=== PATIENT | male | born 1980 | race Caucasian/White ===

== ENCOUNTER 2017-11-03 08:54 | Day surgery (SDC) | payer OTHER ==
[2017-11-03 09:54] VITALS: RESP 16; TEMP 98.2
[2017-11-03] MEDS ORDERED: LIDOCAINE 1% 20 ML VIAL (10MG/ML) FOR IV START INTRADERMA ONE (10:01)
[2017-11-03] MEDS ORDERED: LACTATED RINGERS 1,000 ML IV ONE (10:01)
[2017-11-03] MEDS ORDERED: PROPOFOL 10 MG/ML 20 ML VIAL IV ONE (10:11)
[2017-11-03] MEDS ORDERED: LACTATED RINGERS 1,000 ML IV SCH (10:42)
--- NOTE | 2017-11-03 10:45 | P.PCN ---
Date of Procedure: 11/03/17 Procedure(s) Performed: Procedure: Colonoscopy and biopsy. Preoperative diagnosis: Change in bowel habits. Postoperative diagnosis: 1. Diverticulosis with no evidence of acute diverticulitis or strictures. 2. No evidence of inflammatory bowel disease endoscopically. 3. Cecal polyp biopsied but no large polyps or cancer. Preparation: HalfLytely prep. Sedation: Was provided by anesthesia. Brief clinical history: The patient is a 37-year-old male who is referred for this evaluation because of diarrhea of around 2 years duration. No bleeding or extraintestinal manifestations of inflammatory bowel disease. No family history of colon cancer or inflammatory bowel disease. Procedure: With the patient on his left lateral decubitus position and after informed consent and adequate sedation, the perianal area was inspected and it did not show any fissures or fistulas. There were no masses felt on digital rectal examination. The Olympus CFQ 160L video colonoscope was then inserted in the rectum in the usual fashion and advanced to the cecum. I intubated the ileocecal valve and examined the terminal ileum as well. Terminal ileum and colon appeared healthy with no evidence of inflammatory bowel disease endoscopically. There were several diverticular orifices seen scattered in the sigmoid and right side with no evidence of acute diverticulitis or strictures. There was a small cecal polyp which was biopsied, but there were no large polyps or cancer. I retroflexed the endoscope in the rectum before the endoscope was withdrawn. I obtained biopsies from the terminal ileum and randomly from the colon before the endoscope was withdrawn. The patient tolerated the procedure well. Plan: The patient was reassured. Discussed dietary measures. Will await biopsy results. He will follow up with you as planned. With the finding of the polyp, I would recommend repeat exam in 3-5 years. I will be happy to see in the office of his symptoms persist.
[2017-11-03 10:57] VITALS: BP 125/79; PULSE 72
== END 2017-11-03 11:21 | disposition home or self-care (01) ==
LOC: ORWHC2ENDO 08:54
DX: D12.0 Benign neoplasm of cecum (principal); K57.30 Diverticulosis of large intestine without perforation or abscess without bleeding; I10 Essential (primary) hypertension; F41.9 Anxiety disorder, unspecified; Z79.899 Other long term (current) drug therapy; Z88.0 Allergy status to penicillin
CPT/HCPCS: 88305; 45380; J2704

== ENCOUNTER → 2023-08-14 | Outpatient (CLI) | payer OTHER ==
--- NOTE | 2023-08-14 13:35 | CA ---
Exercise Stress Test Report Name: Stephan Ogden Exam Date: 08/14/2023 11:49 Exam Location: [place] Stress Ht (in): 71 Wt (lb): 235 BSA: 2.26 Ordering Phys: Jason Crow MD Referring Phys: SHA, Technologist: Roberto West Age: 43 Gender: M : 1980 Procedure CPT: Indications: R10.31 right lower quad pain ICD-10 Codes: Patient History: DIFFICULTY IN BREATHING, HTN Medications: BETA NEDA Meds past 24 hrs: Pretest Chest Pain: STRESS TEST Evan Protocol Exercise Duration (min:sec): 12:[address] Depressions (mm): Angina Score: Dove Score: Resting HR (bpm): 102 Peak HR (bpm): 151 Resting BP (mmHg): 124 / 96 Peak BP (mmHg): 198 / 70 MPHR: 175 Target HR: 149 % MPHR: 86 METS: 12.7 Total Dose: Peak Dose: Atropine: Double Product: 28314 BP Response: Stress Termination: TARGET HR REACHED/MAX EXERTION Stress Symptoms: NO SYMPTOMS Stress Summary: ECG ANALYSIS Resting ECG: Normal sinus rhythm, heart rate 97 beats a minute. Stress ECG: No significant ST-T wave changes diagnostic for ischemia. No sustained arrhythmias or ectopic beats. CONCLUSIONS Good excess tolerance for patient's age achieving 12.7 METS Nonischemic ECG response to treadmill exercise Normal hemodynamic and heart response to exercise Overall normal treadmill stress test Dr Jovan Fritz (Electronically Signed) Final Date: 14 August 2023 13:34
== END | disposition home or self-care (01) ==
LOC: RADNMMAIN 10:49
PROVIDERS: ATTEND Family Medicine
DX: R06.02 Shortness of breath (principal); I10 Essential (primary) hypertension; R07.9 Chest pain, unspecified
CPT/HCPCS: 93017